=== PATIENT | male | born 1965 | race Two or more races ===

== ENCOUNTER 2016-09-18 23:23 | Emergency (ER) | payer MEDICAID ==
[~2016-09-18] VITALS: Ht 165.1 cm; Wt 68.0 kg
[~2016-09-18 23:23] MED LIST: ALPR0.5T7; AMIT10TA6; CYCL1TAB18; HYDR-2595; IBUP800T24; NAPR-607; TRAM50TA2
[2016-09-19] MEDS ORDERED: HYDROcodone-ACET 7.5/325MG TAB PO ONE (00:45)
[2016-09-19 05:36] VITALS: BP 118/94
== END 2016-09-19 05:39 | disposition home or self-care (01) ==
LOC: EDBD 23:23 → ER 23:32
DX: S01.01XA Laceration without foreign body of scalp, initial encounter (principal); M19.90 Unspecified osteoarthritis, unspecified site; S09.90XA Unspecified injury of head, initial encounter; R42 Dizziness and giddiness; W22.8XXA Striking against or struck by other objects, initial encounter; Y93.89 Activity, other specified; Y92.89 Other specified places as the place of occurrence of the external cause; Y99.8 Other external cause status
CPT/HCPCS: 12002; 70450

== ENCOUNTER 2017-03-26 16:54 | Emergency (ER) | payer MEDICAID ==
[~2017-03-26] VITALS: Ht 165.1 cm; Wt 74.8 kg
[~2017-03-26 16:54] MED LIST changes: -NAPR-607; +NAPR500T31
[2017-03-26 17:07] VITALS: BP 133/79
[2017-03-26] MEDS ORDERED: KETOROLAC TROMETH 60MG/2ML VIAL IM ONE (20:15)
== END 2017-03-26 20:36 | disposition home or self-care (01) ==
LOC: ER 16:54
DX: M71.22 Synovial cyst of popliteal space [Baker], left knee (principal); Z79.1 Long term (current) use of non-steroidal anti-inflammatories (NSAID); Z79.891 Long term (current) use of opiate analgesic; Z79.899 Other long term (current) drug therapy
CPT/HCPCS: 93971; 96372; 99284; J1885

== ENCOUNTER 2017-12-16 20:07 | Emergency (ER) | payer MEDICAID ==
[~2017-12-16] VITALS: Ht 165.1 cm; Wt 72.6 kg
[2017-12-16 20:22] VITALS: BP 125/55
== END 2017-12-16 22:20 | disposition home or self-care (01) ==
LOC: ER 20:07
DX: S06.0X1A Concussion with loss of consciousness of 30 minutes or less, initial encounter (principal); M62.830 Muscle spasm of back; M62.838 Other muscle spasm; M19.90 Unspecified osteoarthritis, unspecified site; Z79.899 Other long term (current) drug therapy; Y08.89XA Assault by other specified means, initial encounter; Y93.89 Activity, other specified; Y99.8 Other external cause status; Y92.89 Other specified places as the place of occurrence of the external cause

== ENCOUNTER 2018-08-30 21:04 | Emergency (ER) | payer MEDICAID ==
[~2018-08-30] VITALS: Ht 165.1 cm; Wt 81.6 kg
[2018-08-30 21:24] VITALS: BP 130/83
[2018-08-31] MEDS ORDERED: HYDROcodone-ACET 5/325MG TAB PO ONE (01:30)
[2018-08-31] MEDS ORDERED: BACLOFEN 10 MG TAB PO ONE (01:30)
== END 2018-08-31 02:32 | disposition home or self-care (01) ==
LOC: EDBD 21:04 → ER 21:06
DX: M62.838 Other muscle spasm (principal); Y08.89XA Assault by other specified means, initial encounter; Y93.89 Activity, other specified; Y99.8 Other external cause status; Y92.89 Other specified places as the place of occurrence of the external cause
CPT/HCPCS: 70450; 70486; 72125

== ENCOUNTER 2024-09-17 01:58 | Emergency (ER) | payer MEDICAID ==
[~2024-09-17] VITALS: Ht 160 cm; Wt 71.6 kg
[~2024-09-17 01:58] MED LIST changes: +AMIT10TA12; -AMIT10TA6; +CYCL-839; -CYCL1TAB18; +IBUP-1456; -IBUP800T24; +NAPR-746; -NAPR500T31
--- NOTE | 2024-09-17 04:16 | ED.PDOC ---
GI ASSESSMENT HPI Comments 58-year-old male presents to ER with complaints of abdominal pain x2 days. Patient reports he started experiencing pain with associated bruising to epigastric region of abdomen two days ago s/p a bar of a forklift accidentally hit him in this region while he was helping a friend move an object. He rates his current pain a 10/10 to epigastric region of abdomen without radiation. Denies use of medications for current symptoms presents to ER ambulatory on arrival, with steady gait, in no distress with vitals stable. Denies shortness of breath, chest pain, nausea/vomiting, rib pain or any further symptoms/complaints Chief Complaint: Rib Pain Time Seen by MD: 02:41 Primary Care Provider: UNKNOWN Reviewed Notes: Nurses Notes, Medications, Allergies Allergies: Coded Allergies: NO KNOWN ALLERGIES (Unverified , 06/21/12) Home Meds Reported Medications Naproxen (Naproxen) 500 Mg Tab, #60 15 Tramadol Hcl (Tramadol Hcl) 50 Mg Tab, #40 15 Hydrocodone-Acetaminophen (Hydrocodone/Acetaminophen) 1 Tab Tab, #30 15 Alprazolam (Alprazolam) 0.5 Mg Tab, #60 15 Cyclobenzaprine Hcl (Cyclobenzaprine Hcl) 10 Mg Tab, #40 12/06/15 Ibuprofen (Ibuprofen) 800 Mg Tab, #60 //15 Amitriptyline Hcl (Amitriptyline Hcl) 10 Mg Tab, #30 15 Information Source: Patient Mode of Arrival: Ambulatory Past Medical History PAST MEDICAL HISTORY: Anxiety Surgical History: Denies all surgeries Family History Family History: Unknown Social History Smoker: Non-Smoker Alcohol: Occasionally Drugs: Denies Drug Use Lives In: Home Constitutional: denies: chills, diaphoresis, fatigue, fever, malaise, sweats, weakness, others EENTM: denies: blurred vision, double vision, ear bleeding, ear discharge, ear drainage, ear pain, ear ringing, eye pain, eye redness, hearing loss, mouth pain, mouth swelling, nasal discharge, nose bleeding, nose congestion, nose pain, photophobia, tearing, throat pain, throat swelling, voice changes, others Respiratory: denies: cough, hemoptysis, orthopnea, SOB at rest, shortness of breath, SOB with excertion, stridor, wheezing, others Cardiovascular: denies: chest pain, dizzy spells, diaphoresis, Dyspnea on exertion, edema, irregular heart beat, left arm pain, lightheadedness, palpitations, PND, syncope, others Gastrointestinal: reports: others (As stated in HPI) Genitourinary: denies: burning, dysuria, flank pain, frequency, hematuria, incontinence, penile discharge, penile sore, pain, testicle pain, testicle swelling, urgency, others Neurological: denies: dizziness, fainting, headache, left sided numbness, left sided weakness, numbness, paresthesia, pre-existing deficit, right sided numbness, right sided weakness, seizure, speech problems, tingling, tremors, wea kness, others Musculoskeletal: denies: back pain, gout, joint pain, joint swelling, muscle pain, muscle stiffness, neck pain, others Integumetry: reports: others (As stated in HPI) Allergic/Immunocompromised: denies: Difficulty Healing, Frequent Infections, Hives, Itching, others Hematologic/Lymphatic: denies: anemia, blood clots, easy bleeding, easy bruising, swollen glands, others Endocrine: denies: excessive hunger, excessive sweating, excessive thirst, excessive urination, flushing, intolerance to cold, intolerance to heat, unexplained weight gain, unexplained weight loss, others Psychiatric: denies: anxiety, bipolar disorder, depression, hopeless, panic disorder, schizophrenia, sleepless, suicidal, others Physical Exam General Appearance: No Apparent Distress HEENT: PERRL/EOMI Neck: Full Range of Motion, Non-Tender, Normal Respiratory: Chest Non-Tender, Lungs Clear, No Accessory Muscle Use, No Respiratory Distress, Normal Breath Sounds Cardiovascular: No Murmur, No Gallop, Regular Rate/Rhythm Breast Exam: Deferred Gastrointestinal: Epigastric (TTP/mild ecchymosis noted to epigastric region of abdomen. No rebound/guarding noted. No other TTP to abdomen noted. No further skin changes appreciated), No Organomegaly, No Pulsatile Mass, Normal Bowel Sounds, Soft Genitalia: Deferred Pelvic: Deferred Rectal: Deferred Extremities: Normal capillary refill, Normal range of motion Neurologic: Alert, nurse case manager II-XII nml as Tested, No Motor Deficits, Normal Affect, Normal Mood, No Sensory Deficits Cerebellar Function: Normal Reflexes: Normal Skin: Dry, Warm Lymphatic: No Adenopathy Was a procedure done? Was a procedure done?: No Sedation Sedation?: No GI differential Dx Differential Diagnosis: GI hemorrhage, Hernia, Ischemic Bowel, Trauma intraabdominal X-Ray, Labs, Meds, VS Vital Signs Date Time Temp Pulse Resp B/P (MAP) Pulse Ox O2 Delivery O2 Flow Rate FiO2 09/17/24 02:09 98.3 77 18 124/80 97 98.3 Lab Test 09/17/24 04:13 Range/Units White Blood Count 4.9 4.4-10.8 10^3/uL Red Blood Count 4.91 4.5-5.90 10^6/uL Hemoglobin 14.9 13.5-17.5 g/dL Hematocrit 42.5 41.0-53.0 % Mean Corpuscular Volume 86.4 80.0-100.0 fL Mean Corpuscular Hemoglobin 30.3 28.0-32.0 pg Mean Corpuscular Hemoglobin Concent 35.0 32.0-36.0 g/dL Red Cell Distribution Width 13.5 11.8-14.3 % Platelet Count 250 140-450 10^3/uL Mean Platelet Volume 9.4 6.9-10.8 fL Neutrophils (%) (Auto) 56.4 37.0-80.0 % Lymphocytes (%) (Auto) 29.4 10.0-50.0 % Monocytes (%) (Auto) 10.4 0.0-12.0 % Eosinophils (%) (Auto) 3.2 0.0-7.0 % Basophils (%) (Auto) 0.6 0.0-2.0 % Neutrophils # (Auto) 2.8 1.6-8.6 10 ^3/uL Lymphocytes # (Auto) 1.4 0.4-5.4 10 ^3/uL Monocytes # (Auto) 0.5 0-1.3 10 ^3/uL Eosinophils # (Auto) 0.2 0-0.8 10 ^3/uL Basophils # (Auto) 0 0-0.2 10 ^3/uL Nucleated Red Blood Cells 0.0 % Prothrombin Time 11.1 9.3-11.8 sec Prothrombin Time INR 1.05 0.9-1.15 Activated Partial Thromboplast Time 30.8 24.5-34.5 SEC Sodium Level 139 136-145 mmol/L Potassium Level 3.3 L 3.5-5.1 mmol/L Chloride Level 104 98-107 mmol/L Carbon Dioxide Level 28 20-31 mmol/L Anion Gap 7 5-15 Blood Urea Nitrogen 13 9-23 mg/dL Creatinine 0.86 0.700-1.30 mg/dL Glomerular Filtration Rate Calc 102 >90 mL/min BUN/Creatinine Ratio 15.1 10.0-20.0 Serum Glucose 94 74-106 mg/dL Calcium Level 8.4 L 8.7-10.4 mg/dL Troponin I High Sensitivity < 3 L </=54 ng/L PATIENT: KATIE MCCRARYCCT: [id number]: [id number] : 1965 LOC: ER ROOM / BED: / AGE / SEX: 58 / M ADM STATUS: REG ER SERVICE 0404 ORDERING PHYSICIAN: VARSHA GASPAR PROCEDURE(s): CTCAP - CHST AB PEL WO CON-NO IV/ORAL REASON: chest wall/abdominal pain ORDER NUMBER(s): [id number], ACCESSION NUMBER(s): [id number] EXAM: CT CHST AB PEL WO CON-NO IV/ORAL History: chest wall/abdominal pain Comparison Study: None TECHNIQUE: Multidetector CT of the chest, abdomen and pelvis was performed from lower neck to pubic symphysis without the use of intravenous contrast. Axial, coronal and sagittal multiplanar reformats were performed by the technologist on a separate workstation. Radiation Dose Information: CT Dose: CTDI volume is 7.66 mGy. Dose-length product is 4.61 mGy*cm FINDINGS: Lower neck: Normal thyroid. Lungs: No focal consolidation, suspicious pulmonary nodules or pulmonary masses. Central airways: Patent. Pleura: No pleural effusion or significant pneumothorax. Heart/Vascular Structures: Normal heart size. Normal caliber thoracic aorta and main pulmonary artery. No mediastinal hematoma. Lymph Nodes: No adenopathy. Liver: The liver is normal in size. Limited evaluation for liver masses without intravenous contrast however none are identified. Gallbladder and Biliary Tree: There are gallstones. No biliary ductal dilatation. Spleen: Unremarkable. Pancreas: Unremarkable. Adrenal Glands: Unremarkable. Kidneys: No intrarenal stones. No hydronephrosis. Bladder: Unremarkable. GI tract: The stomach is unremarkable. No small or large bowel obstruction. Colonic diverticulosis without acute diverticulitis. Normal appendix. Intraperitoneal cavity: No ascites or pneumoperitoneum. Lymphadenopathy: No enlarged lymph nodes. Vasculature: The visualized abdominal aorta is normal in size and caliber. Evaluation of the vascular structures is limited due to lack of intravenous contrast. Pelvic Organs: Unremarkable. Musculoskeletal: No acute osseous abnormality. Soft tissues: Unremarkable. IMPRESSION: 1. No acute abnormality in the chest, abdomen or pelvis. 2. Gallstones. All CT scans at this medical facility are performed using dose modulation techniques as appropriate to a performed exam including the following: Automated exposure control was utilized; adjustment of the MA and/or KV according to patient size; and use of iterative reconstruction technique. ATED BY: OLGA AYALA MD DICTATED DATE/TIME: 09/17/24447 SIGNED BY: OLGA AYALA MD SIGNED DATE/TIME: 09/17/24447 CC: CBC reviewed - unremarkable BMP reviewed without any significant abnormalities PT/PTT reviewed-unremarkable Troponin reviewed-normal CT chest/abdomen/pelvis without contrast reviewed Patient had improvement in symptoms and in no distress prior to discharge Advised to alternate ice on/off as needed for pain Advised to follow up with PCP in 1-2 days Patient verbalized understanding and agreeable with current plan of care Advised to return to ER immediately if symptoms worsen Images Reviewed?: Images reviewed and evaluated by me Time of 1ST Reevaluation: 04:10 Reevaluation 1ST: N/A Patient Education/Counseling: Diagnosis, Treatment, Prognosis, Need For Follow Up Family Education/Counseling: No Family Present SEPSIS Sepsis Screen Date sepsis recognized/suspect: Sep 17, 2024 Time Sepsis recognized/suspect: 211 Recent Procedure: No On Antibiotic Therapy: No Respiratory Rate >20: No Heart Rate >90: No Temp<36 C (96.8 F) or >38.3 C: No SBP <90 or MAP <65 mmHG: No New Acute Mental Status Change: No Is the patient on CPAP, BIPAP,: No Physician Orders Chst Ab Pel Wo Con-No Iv/Oral (09/17/24 04:04) Vital Signs Date Time Temp Pulse Resp B/P (MAP) Pulse Ox O2 Delivery O2 Flow Rate FiO2 09/17/24 02:09 98.3 77 18 124/80 97 98.3 Laboratory Tests Test 09/17/24 04:13 White Blood Count 4.9 10^3/uL (4.4-10.8) Departure 1 Departure Time of Disposition: 05:08 Impression: Primary Impression: Abdominal wall contusion Qualified Codes: S30.1XXA - Contusion of abdominal wall, initial encounter Disposition: HOME / SELF CARE / HOMELESS Condition: Stable e-Prescriptions Acetaminophen (Acetaminophen) 500 Mg Tab 500 MG PO Q4HPRN, #30 TAB 0 Refills Prov: VARSHA GASPAR 09/17/24 Discharged With: Self Critical Care Note Critical Care Time?: No Stability Stability form required: No Heart Score Heart Score: Heart Score Response (Comments) Value History N/A 0 EKG N/A 0 Age N/A 0 Risk Factors N/A 0 Troponin N/A 0 Total 0 VARSHA GASPAR Sep 17, 2024 04:16
[2024-09-17 04:40] LABS: Hematocrit 42.5 % (41.0-53.0); Hemoglobin 14.9 g/dL (13.5-17.5); Mean Corpuscular Hemoglobin 30.3 pg (28.0-32.0); Mean Corpuscular Volume 86.4 fL (80.0-100.0); Nucleated Red Blood Cells % 0.0 %
--- NOTE | 2024-09-17 04:50 | DVH ---
EXAM: CT CHST AB PEL WO CON-NO IV/ORAL History: chest wall/abdominal pain Comparison Study: None TECHNIQUE: Multidetector CT of the chest, abdomen and pelvis was performed from lower neck to pubic s ymphysis without the use of intravenous contrast. Axial, coronal and sagittal multiplanar reformats w ere performed by the technologist on a separate workstation. Radiation Dose Information: CT Dose: CTDI volume is 7.66 mGy. Dose-length product is 4.61 mGy*cm FINDINGS: Lower neck: Normal thyroid. Lungs: No focal consolidation, suspicious pulmonary nodules or pulmonary masses. Central airways: Patent. Pleura: No pleural effusion or significant pneumothorax. Heart/Vascular Structures: Normal heart size. Normal caliber thoracic aorta and main pulmonary artery . No mediastinal hematoma. Lymph Nodes: No adenopathy. Liver: The liver is normal in size. Limited evaluation for liver masses without intravenous contrast however none are identified. Gallbladder and Biliary Tree: There are gallstones. No biliary ductal dilatation. Spleen: Unremarkable. Pancreas: Unremarkable. Adrenal Glands: Unremarkable. Kidneys: No intrarenal stones. No hydronephrosis. Bladder: Unremarkable. GI tract: The stomach is unremarkable. No small or large bowel obstruction. Colonic diverticulosis w ithout acute diverticulitis. Normal appendix. Intraperitoneal cavity: No ascites or pneumoperitoneum. Lymphadenopathy: No enlarged lymph nodes. Vasculature: The visualized abdominal aorta is normal in size and caliber. Evaluation of the vascular structures is limited due to lack of intravenous contrast. Pelvic Organs: Unremarkable. Musculoskeletal: No acute osseous abnormality. Soft tissues: Unremarkable. IMPRESSION: 1. No acute abnormality in the chest, abdomen or pelvis. 2. Gallstones. All CT scans at this medical facility are performed using dose modulation techniques as appropriate t o a performed exam including the following: Automated exposure control was utilized; adjustment of th e MA and/or KV according to patient size; and use of iterative reconstruction technique.
[2024-09-17 04:53] LABS: Chloride 104 mmol/L (98-107); Potassium 3.3 mmol/L (3.5-5.1); Sodium 139 mmol/L (136-145)
[2024-09-17 04:54] LABS: Anion Gap 7 (5-15); Calcium 8.4 mg/dL (8.7-10.4); Carbon Dioxide 28 mmol/L (20-31)
[2024-09-17 04:59] LABS: BUN/Creatinine Ratio 15.1 (10.0-20.0); Blood Urea Nitrogen 13 mg/dL (9-23); Glucose 94 mg/dL (74-106)
[2024-09-17 05:00] LABS: INR 1.05 (0.9-1.15); Partial Thromboplastin Time 30.8 SEC (24.5-34.5); Prothrombin Time 11.1 sec (9.3-11.8)
[2024-09-17] MEDS ORDERED: ACET500T58 PO (05:08)
[2024-09-17 06:08] VITALS: BP 119/70; PULSE 65; RESP 18; TEMP 98.3; O2SAT 97
== END 2024-09-17 05:23 | disposition home or self-care (01) ==
LOC: ER 01:58
DX: S30.1XXA Contusion of abdominal wall, initial encounter (principal); F41.9 Anxiety disorder, unspecified; Z79.899 Other long term (current) drug therapy; W22.8XXA Striking against or struck by other objects, initial encounter; Y93.89 Activity, other specified; Y92.89 Other specified places as the place of occurrence of the external cause; Y99.8 Other external cause status
CPT/HCPCS: 36415; 71250; 74176; 80048; 84484; 85025; 85610; 85730